=== PATIENT | female | born 1945 | race Caucasian/White ===

== ENCOUNTER 2019-03-10 12:23 | Emergency (ER) | payer OTHER, SELFPAY ==
[2019-03-10 12:31] VITALS: BP 131/78; PULSE 77; RESP 18; TEMP 36.7; O2SAT 98
--- NOTE | 2019-03-10 13:37 | DI.CT.S_ITS ---
PROCEDURE: CT SOFT TISSUE NECK W CON INDICATIONS: tender swollen mass R neck TECHNIQUE: After the administration of intravenous contrast, 3.0 mm axial sections acquired from the sella to the aortic arch. Additional oblique axial 3.0 mm sections acquired through the pharynx. 3 mm thick coronal and sagittal reformats were generated. For radiation dose reduction, the following was used: automated exposure control. COMPARISON: None. FINDINGS: Image quality: Excellent. Lymph nodes: No enlarged lymph nodes seen throughout the neck. However, multiple small right sided lymph nodes are evident within the neck. Vessels: Visualized vasculature appears patent. Minimal atherosclerosis of the left carotid bulb is evident without focal narrowing identified. There may also be subtle atherosclerosis of the right carotid bulb. Mild aortic atherosclerosis is present. There is also atherosclerosis of the origin of the left subclavian artery. A bovine aortic arch is present. Neck spaces: The oropharynx, nasopharynx, and pharynx demonstrate no mucosal lesions. The vocal cords, false vocal cords, pyriform sinuses, epiglottis, vallecula, and tongue base all appear normal. Extramucosal spaces appear unremarkable. Glands: A marker was placed at the site of the patient's area of concern, which is noted to be overlying the right parotid gland. The right parotid gland is enlarged when compared to the left parotid gland. There is heterogeneity and increased vascularity demonstrated to the right parotid gland. There may be a few small intraparotid lymph nodes. No loculated or drainable fluid collections are evident. Subcutaneous edema along the right aspect of the neck is evident without a drainable fluid collection identified. There is no edema or fluid extending into the deep spaces of the neck. The left parotid gland is normal in size. The submandibular glands do not appear to be enlarged. Miscellaneous: Visualized brain and orbits appear normal. There may be areas of intralobular septal thickening within the bilateral lung apices. A left-sided cardiac pacer/defibrillator apparatus is incidentally noted, but not adequately evaluated. Mild prominence of the wall of the upper esophagus appears to be present. Superficial soft tissues appear normal. The included portions of the brain are grossly unremarkable. There may be minimal chronic small vessel ischemic changes involving the deep white matter of the anterior frontal lobes. The thyroid gland is normal in size. No definite thyroid nodules are evident. Bones: No suspicious bony lesions. Visualized sinuses and mastoids appear unremarkable. [id number] degenerative changes of the cervical spine are more prominent involving the lower cervical levels, which are age-appropriate. IMPRESSION: 1. Enlarged right parotid gland with mild surrounding edema within the adjacent tissues and minimal fluid extending along the right aspect of the neck. No definite parotid mass is appreciated. These findings are suspicious for parotiditis. The possibility of a parotid duct obstruction cannot be excluded and is not adequately evaluated by imaging. Clinical correlation is recommended. Followup CT imaging of the neck with contrast and approximately 3 months is recommended to reevaluate the parotid gland 2. Reactive lymph nodes within the neck. 3. Mild prominence of the wall of the upper esophagus is of doubtful significance. Please correlate clinically to exclude esophagitis. Dictated by: Darren Nelson M.D. on 03/10/2019 at 13:43 Approved by: Darren Nelson M.D. on 03/10/2019 at 13:49
[2019-03-10 13:54] LABS: Add Manual Diff / Slide Review NO; Basophils Absolute Auto 100 /uL (0-100); Basophils Percent Auto 0.7 % (0-2); Eosinophils Absolute Auto 300 /uL (0-450); Hematocrit 39.7 % (36-46); Hemoglobin 13.4 g/dL (12.0-16.0); Lymphocytes Absolute Auto 1200 /uL (1100-4500); Lymphocytes Percent Auto 11.9 % (25-40); Mean Corpuscular HGB Conc 33.7 % (30-36); Mean Corpuscular Hemoglobin 31.1 PG (26-34); Mean Corpuscular Volume 92.3 fL (80-100); Monocytes Absolute Auto 1200 /uL (0-900); Monocytes Percent Auto 12.1 % (3-14); Neutrophils Absolute Auto 7500 /uL (1500-7000); Neutrophils Percent Auto 72.3 % (50-75); Platelet Count 213 X10^3/uL (150-400); Red Cell Distribution Width 14.5 % (11.6-14.8); White Blood Cell Count 10.3 X10^3/uL (4.5-11.0)
[2019-03-10] MEDS: SODIUM CHLORIDE 0.9% 1,000 ML 1000 ML IV (13:57)
[2019-03-10 14:08] LABS: Blood Urea Nitrogen 14 mg/dL (7-17); Calcium 9.1 mg/dL (8.4-10.2); Carbon Dioxide 30 mmol/L (22-32); Chloride 104 mmol/L (98-107); Estimated Glomerular Filt Rate > 60.0 mL/min (>60); Glucose 94 mg/dL (80-110); HEMOLYSIS < 15 (0-50); Potassium 4.4 mmol/L (3.4-5.1); Sodium 140 mmol/L (137-145)
--- NOTE | 2019-03-10 15:00 | ED.NECK ---
HPI - Neck Pain/Injury General Chief Complaint: Neck Pain/Injury Stated Complaint: Swelling on Right Side of Face, Sent from [facility] Time Seen by Provider: 03/10/19 13:00 Mode of arrival: Ambulatory Limitations: no limitations History of Present Illness HPI Narrative: 73F nonsmoker with cardiac history presents with gradually worsening right-sided jaw pain and swelling over the past day or 2. She has no trouble breathing and no difficulty swallowing. She denies any fever chills nor nausea or vomiting. She denies any trauma or history of the same. She was seen at the walk-in clinic and sent here for further evaluation. MD complaint: neck pain Onset (ago): day(s) Place: home Radiation: right lateral Severity: moderate Quality: aching Duration: constant Relieving factors: none Exacerbating factors: movement of neck Associated symptoms: none Treatments prior to arrival: none Related Data Home Medications Medication Instructions Recorded Confirmed blue green algae PO 04/10/18 04/10/18 digoxin 125 mcg (0.125 mg) tablet 0.125 mg PO DAILY 04/10/18 04/10/18 furosemide PO 04/10/18 04/10/18 magnesium PO 04/10/18 04/10/18 metoprolol succinate 100 mg 100 mg PO BID each 04/10/18 04/10/18 capsule sprinkle, ext. release 24 hr multivitamin 1 cap PO DAILY 04/10/18 04/10/18 potassium chloride PO 04/10/18 04/10/18 verapamil 360 mg 24 hr 360 mg PO DAILY 04/10/18 04/10/18 capsule,extended release warfarin 5 mg tablet 5 mg PO DAILY 04/10/18 04/10/18 Allergies Allergy/AdvReac Type Severity Reaction Status Date / Time azithromycin AdvReac Rash Verified 04/10/18 11:37 Review of Systems Constitutional Constitutional: Denies chills, Denies fatigue, Denies fever(s), Denies frequent falls, Denies lethargy and Denies weakness Eyes Eyes: Denies change in vision, Denies eye discharge, Denies irritation and Denies loss of vision ENT Ears, Nose, Mouth, and Throat: Denies change in voice, Denies dizziness, Denies neck pain, Denies sore throat and Denies throat swelling Comments: Right-sided facial swelling Cardiovascular Cardiovascular: Denies chest pain, Denies irregular heart rhythm, Denies lightheadedness, Denies palpitations, Denies dyspnea, Denies dyspnea on exertion and Denies orthopnea Respiratory Respiratory: Denies cough, Denies dyspnea, Denies dyspnea on exertion and Denies wheezing Gastrointestinal Gastrointestinal: Denies abdominal pain, Denies change in bowel habits, Denies diarrhea, Denies nausea and Denies vomiting Genitourinary Genitourinary: Denies hematuria, Denies flank pain, Denies urinary incontinence and Denies urinary urgency Musculoskeletal Musculoskeletal: Denies back pain, Denies muscle weakness, Denies neck pain, Denies numbness and Denies tingling Integumentary/Breasts Skin/Breast: Denies pruritus, Denies erythema, Denies rash and Denies wounds Neurologic Neurologic: Denies behavioral changes, Denies confusion, Denies dizziness, Denies frequent falls, Denies loss of vision, Denies numbness, Denies tingling and Denies weakness Psychiatric Psychiatric: Denies anxiety, Denies behavioral changes, Denies confusion, Denies depression, Denies homicidal ideation and Denies suicidal ideation Endocrine Endocrine: Denies fatigue, Denies flushing and Denies palpitations Hematologic/Lymphatic Hematologic/Lymphatic: Denies easy bruising Allergic/Immunologic Allergic/Immunologic: Denies urticaria, Denies throat swelling and Denies wheezing Patient History Social History Smoking Status: Never smoker Smoking Status: Never smoker alcohol intake frequency: 0-2 drinks per day Substance Use Type: does not use Exam Narrative Exam Narrative: GENERAL: [73] year old patient appears stated age. Well-nourished, well-developed patient, in mild distress. HEAD: Atraumatic. Normocephalic. EYES: Pupils equal round and reactive. Extraocular motions intact. No scleral icterus. No injection or drainage. ENT: Right-side facial swelling overlying the parotid gland. There is no fluctuance nor redness or warmth suggesting infectious source. Intraoral examination shows no evidence of dental abscess. She does have difficulty completely opening her jaw due to pain. Nose without bleeding, purulent drainage. Throat without erythema, tonsillar hypertrophy or exudate. Airway patent. NECK: Trachea midline. Non tender CARDIOVASCULAR: Regular rate and rhythm without murmurs, gallops, or rubs. RESPIRATORY: Clear to auscultation. Breath sounds equal bilaterally. No wheezes, rales, or rhonchi. GASTROINTESTINAL: Abdomen soft, non-tender, nondistended. EXTREMITIES: No edema or joint tenderness. BACK: Nontender without deformity or crepitance. No flank tenderness. NEURO: AOx3. SKIN: No rash or erythema of visible areas Initial Vital Signs Initial Vital Signs: Vital Signs Temperature 98.1 F 03/10/19 12:31 Pulse Rate 77 03/10/19 12:31 Respiratory Rate 18 03/10/19 12:31 Blood Pressure 131/78 03/10/19 12:31 Pulse Oximetry 98 03/10/19 12:31 Course Course Course Narrative: Discussion with on-call ENT regarding patient's presentation and imaging. His recommendation is encouragement of sialagogues, warm compresses and close follow-up, with consideration of oral antibiotics if patient is immunocompromised or starts showing signs of infection Orders Ordered: ED Orders 03/10/19 13:37 CT soft tissue neck w con Stat 03/10/19 13:45 Basic Metabolic Panel Stat Complete Blood Count AUTO DIFF Stat Discontinued Medications Sodium Chloride (Normal Saline 0.9%) 1,000 mls @ 1,000 mls/hr IV BOLUS ONE Stop: 03/10/19 14:36 Last Infusion: 03/10/19 15:08 Dose: 0 mls/hr Documented by: Infusion: 03/10/19 14:44 Dose: 1,000 mls/hr Documented by: Infusion: 03/10/19 14:28 Dose: 0 mls/hr Documented by: Admin: 03/10/19 13:57 Dose: 1,000 mls/hr Documented by: DANTE Vital Signs Vital signs: Vital Signs - 8 hr 03/10/19 12:31 03/10/19 15:29 Temperature 98.1 F Pulse Rate 77 100 H Respiratory Rate 18 16 Blood Pressure 131/78 148/108 H Pulse Oximetry 98 97 MDM - Neck Pain/Injury Lab Data Result diagrams: 03/10/19 13:45 03/10/19 13:45 Labs: Lab Results 03/10/19 03/10/19 Range/Units 13:45 13:45 WBC 10.3 (4.5-11.0) X10^3/uL RBC 4.30 (4.0-5.2) X10^6/uL Hgb 13.4 (12.0-16.0) g/dL Hct 39.7 (36-46) % MCV 92.3 (80-100) fL MCH 31.1 (26-34) PG MCHC 33.7 (30-36) % RDW 14.5 (11.6-14.8) % Plt Count 213 (150-400) X10^3/uL Neut % (Auto) 72.3 (50-75) % Lymph % (Auto) 11.9 L (25-40) % [place] % (Auto) 12.1 (3-14) % Eos % (Auto) 3.0 (2-4) % Baso % (Auto) 0.7 (0-2) % Neut # (Auto) 7500 H (5345-0847) /uL Lymph # (Auto) 1200 (0557-6872) /uL [place] # (Auto) 1200 H (0-900) /uL Eos # (Auto) 300 (0-450) /uL Baso # (Auto) 100 (0-100) /uL Sodium 140 (137-145) mmol/L Potassium 4.4 (3.4-5.1) mmol/L Chloride 104 (98-107) mmol/L Carbon Dioxide 30 (22-32) mmol/L BUN 14 (7-17) mg/dL Creatinine 0.70 (0.52-1.04) mg/dL Estimated GFR > 60.0 (>60) mL/min BUN/Creatinine Ratio 20.0 (6-22) Glucose 94 (80-110) mg/dL Calcium 9.1 (8.4-10.2) mg/dL Imaging Data CT Soft Tissue: Radiologist's Impression: [place] [address] CT Scan Report Signed Patient: Kiana Rosales LMR#: [id number] : 5Acct:[id number] Age/Sex: 73 / FDate of Service: 03/10/19 Loc: ED Accession Number: [id number] Procedure: CT soft tissue neck w con Ordering Provider: Clay Thurman D.O. PROCEDURE: CT SOFT TISSUE NECK W CON INDICATIONS: tender swollen mass R neck TECHNIQUE: After the administration of intravenous contrast, 3.0 mm axial sections acquired from the sella to the aortic arch. Additional oblique axial 3.0 mm sections acquired through the pharynx. 3 mm thick coronal and sagittal reformats were generated. For radiation dose reduction, the following was used: automated exposure control. COMPARISON: None. FINDINGS: Image quality: Excellent. Lymph nodes: No enlarged lymph nodes seen throughout the neck. However, multiple small right sided lymph nodes are evident within the neck. Vessels: Visualized vasculature appears patent. Minimal atherosclerosis of the left carotid bulb is evident without focal narrowing identified. There may also be subtle atherosclerosis of the right carotid bulb. Mild aortic atherosclerosis is present. There is also atherosclerosis of the origin of the left subclavian artery. A bovine aortic arch is present. Neck spaces: The oropharynx, nasopharynx, and pharynx demonstrate no mucosal lesions. The vocal cords, false vocal cords, pyriform sinuses, epiglottis, vallecula, and tongue base all appear normal. Extramucosal spaces appear unremarkable. Glands: A marker was placed at the site of the patient's area of concern, which is noted to be overlying the right parotid gland. The right parotid gland is enlarged when compared to the left parotid gland. There is heterogeneity and increased vascularity demonstrated to the right parotid gland. There may be a few small intraparotid lymph nodes. No loculated or drainable fluid collections are evident. Subcutaneous edema along the right aspect of the neck is evident without a drainable fluid collection identified. There is no edema or fluid extending into the deep spaces of the neck. The left parotid gland is normal in size. The submandibular glands do not appear to be enlarged. Miscellaneous: Visualized brain and orbits appear normal. There may be areas of intralobular septal thickening within the bilateral lung apices. A left-sided cardiac pacer/defibrillator apparatus is incidentally noted, but not adequately evaluated. Mild prominence of the wall of the upper esophagus appears to be present. Superficial soft tissues appear normal. The included portions of the brain are grossly unremarkable. There may be minimal chronic small vessel ischemic changes involving the deep white matter of the anterior frontal lobes. The thyroid gland is normal in size. No definite thyroid nodules are evident. Bones: No suspicious bony lesions. Visualized sinuses and mastoids appear unremarkable. Vydr-ix-[id number] degenerative changes of the cervical spine are more prominent involving the lower cervical levels, which are age-appropriate. IMPRESSION: 1. Enlarged right parotid gland with mild surrounding edema within the adjacent tissues and minimal fluid extending along the right aspect of the neck. No definite parotid mass is appreciated. These findings are suspicious for parotiditis. The possibility of a parotid duct obstruction cannot be excluded and is not adequately evaluated by imaging. Clinical correlation is recommended. Followup CT imaging of the neck with contrast and approximately 3 months is recommended to reevaluate the parotid gland 2. Reactive lymph nodes within the neck. 3. Mild prominence of the wall of the upper esophagus is of doubtful significance. Please correlate clinically to exclude esophagitis. Dictated by: Darren Nelson M.D. on 03/10/2019 at 13:43 Approved by: Darren Nelson M.D. on 03/10/2019 at 13:49 Discharge Plan Departure Patient Disposition: Home Clinical Impression: Acute parotitis Discharge Date/Time: 03/10/19 15:29 Instructions: DI for Parotitis-Adult Activity Restrictions/Additional Instructions: *You have been diagnosed with [acute parotitis, not likely to be infectious] *What to do: *Take medications as directed: Also, use of chewing gum or sucking on hard candies can help clear this condition. As can the use of warm compresses. *Follow up with your primary care provider in 2-3 days, call for an appointment. Let them know you were seen in the Emergency Department and that we ask that you be seen in follow up *Return to ER if you should have any new, worsening or concerning symptoms, such as [fever, chills, or if the swelling becomes worse, red, warm, more painful or other bothersome symptoms ] Prescriptions: No Action verapamil 360 mg capsule,ext rel. pellets 24 hr 360 mg PO DAILY RF: 0 warfarin 5 mg tablet 5 mg PO DAILY RF: 0 digoxin [Digox] 125 mcg tablet 0.125 mg PO DAILY RF: 0 multivitamin capsule 1 cap PO DAILY RF: 0 metoprolol succinate 100 mg cap,sprinkle,ER 24hr dose pack 100 mg PO BID RF: 0 blue green algae PO RF: 0 furosemide PO RF: 0 magnesium PO RF: 0 potassium chloride PO RF: 0 Referrals: Rory Jackson MD [Physician] -
[2019-03-10 15:29] VITALS: BP 148/108; PULSE 100; RESP 16; O2SAT 97
== END 2019-03-10 15:29 | disposition home or self-care (01) ==
PROVIDERS: Emergency Provider Emergency Medicine
DX: K11.21 Acute sialoadenitis (principal)
CPT/HCPCS: 36415; 70491; 80048; 85025; 99284; Q9967

== ENCOUNTER → 2023-06-30 14:46 | Outpatient (CLI) | payer OTHER, SELFPAY ==
[2023-06-30 15:19] LABS: Add Manual Diff / Slide Review NO; Basophils Absolute Auto 0 /uL (0-100); Basophils Percent Auto 0.7 % (0-2); Eosinophils Absolute Auto 300 /uL (0-450); Eosinophils Percent Auto 4.9 % (2-4); Hematocrit 40.6 % (36-46); Hemoglobin 13.5 g/dL (12.0-16.0); Lymphocytes Absolute Auto 1700 /uL (1100-4500); Lymphocytes Percent Auto 29.1 % (25-40); Mean Corpuscular HGB Conc 33.3 % (30-36); Mean Corpuscular Hemoglobin 31.6 PG (26-34); Mean Corpuscular Volume 94.8 fL (80-100); Monocytes Absolute Auto 500 /uL (0-900); Monocytes Percent Auto 9.2 % (3-14); Neutrophils Absolute Auto 3300 /uL (1500-7000); Neutrophils Percent Auto 56.1 % (50-75); Platelet Count 194 X10^3/uL (150-400); Red Blood Cell Count 4.29 X10^6/uL (4.0-5.2); Red Cell Distribution Width 14.5 % (11.6-14.8); White Blood Cell Count 5.8 X10^3/uL (4.5-11.0)
[2023-06-30 15:26] LABS: INR 3.4 (0.9-1.3)
[2023-06-30 15:36] LABS: Estimated Glomerular Filt Rate 51 mL/min (>60); HEMOLYSIS < 15 (0-50); Potassium 4.5 mmol/L (3.4-5.1); Sodium 140 mmol/L (137-145)
[2023-06-30 21:29] LABS: Hemoglobin A1C% w Est Avg Glu 6.4 % (4.0-6.0)
[2023-07-06 04:52] LABS: Lipoprotein (a) 15.2 nmol/L (<75.0)
== END ==
PROVIDERS: Referring Provider Internal Medicine Clinical Cardiac Electrophysiology; Visit Provider Internal Medicine Clinical Cardiac Electrophysiology
DX: Z51.81 Encounter for therapeutic drug level monitoring (principal); E74.39 Other disorders of intestinal carbohydrate absorption; E78.5 Hyperlipidemia, unspecified
CPT/HCPCS: 36415; 82565; 83036; 83695; 84132; 84295; 85025; 85610

== ENCOUNTER → 2023-10-17 12:09 | Outpatient (CLI) | payer OTHER, SELFPAY ==
--- NOTE | 2023-10-17 12:12 | DI.RAD.S_ITS ---
PROCEDURE: XR TOE RT MIN 2V INDICATIONS: pain / swelling /erythema x 1 week to 3rd digit TECHNIQUE: 3 views of the 3rd toe(s) acquired. COMPARISON: None. FINDINGS: Bones: No fractures or dislocations. No suspicious bony lesions. Mild interphalangeal periarticular osteophyte formation. Soft tissues: No suspicious soft tissue densities. Mild 3rd digit soft tissue swelling. IMPRESSION: Mild 3rd digit soft tissue swelling and interphalangeal joint degeneration. If pain persists, consider cross-sectional imaging such as CT or MRI. Dictated by: Agustín PACHECO Interpreted: Vicky Khanna MD on 10/18/2023 at 18:41 Transcribed by: ROSALINDA on 10/18/2023 at 18:42 Approved by: Vicky Khanna M.D. on 10/19/2023 at 16:44
[2023-10-17 14:09] LABS: Add Manual Diff / Slide Review NO; Basophils Absolute Auto 0 /uL (0-100); Basophils Percent Auto 0.6 % (0-2); Eosinophils Absolute Auto 300 /uL (0-450); Eosinophils Percent Auto 3.4 % (2-4); Hematocrit 38.7 % (36-46); Hemoglobin 12.9 g/dL (12.0-16.0); Lymphocytes Absolute Auto 1700 /uL (1100-4500); Lymphocytes Percent Auto 21.5 % (25-40); Mean Corpuscular HGB Conc 33.2 % (30-36); Mean Corpuscular Hemoglobin 32.1 PG (26-34); Mean Corpuscular Volume 96.7 fL (80-100); Monocytes Absolute Auto 800 /uL (0-900); Monocytes Percent Auto 10.4 % (3-14); Neutrophils Absolute Auto 5200 /uL (1500-7000); Neutrophils Percent Auto 64.1 % (50-75); Platelet Count 215 X10^3/uL (150-400); Red Cell Distribution Width 14.1 % (11.6-14.8)
[2023-10-17 14:28] LABS: Erythrocyte Sedimentation Rate 6 MM/HR (0-20)
[2023-10-17 14:57] LABS: Uric Acid 8.6 mg/dL (2.5-6.2)
[2023-10-17 16:31] LABS: Alanine Aminotransferase 25 IU/L (<35); Albumin 4.4 g/dL (3.5-5.0); Albumin Globulin Ratio 1.6 (1.0-2.8); Alkaline Phosphatase 45 U/L (38-126); BUN Creatinine Ratio 17.2 (6-22); Blood Urea Nitrogen 21 mg/dL (7-17); Calcium 9.4 mg/dL (8.4-10.2); Carbon Dioxide 19 mmol/L (22-32); Chloride 108 mmol/L (98-107); Estimated Glomerular Filt Rate 45 mL/min (>60); Globulin 2.7 g/dL (1.7-4.1); Glucose 100 mg/dL (80-110); Sodium 139 mmol/L (137-145); Total Protein 7.1 g/dL (6.3-8.2)
[2023-10-17 16:36] LABS: Aspartate Aminotransferase 51 IU/L (14-36); HEMOLYSIS 136 (0-50); Potassium 5.9 mmol/L (3.4-5.1)
== END ==
PROVIDERS: PCP Family Medicine; Referring Provider Physician Assistant; Visit Provider Physician Assistant
DX: L03.90 Cellulitis, unspecified (principal); M10.9 Gout, unspecified
CPT/HCPCS: 36415; 73660; 80053; 84550; 85025; 85651

== ENCOUNTER → 2024-05-15 14:24 | Outpatient (CLI) | payer OTHER, SELFPAY ==
[2024-05-15 15:12] LABS: Influenza A - CEPHEID Flu A POSITIVE (NEGATIVE); Influenza B - CEPHEID Flu B NEGATIVE (NEGATIVE); Respiratory Syncytial Virus Negative (Negative)
[2024-05-15 15:15] LABS: COVID-19 CEPHEID 4-PLEX PCR Negative (Negative)
== END ==
PROVIDERS: PCP Family Medicine; Visit Provider Nurse Practitioner Family
DX: R05.1 Acute cough (principal)
CPT/HCPCS: 0241U

== ENCOUNTER → 2024-05-15 15:25 | Outpatient (CLI) | payer OTHER, SELFPAY ==
--- NOTE | 2024-05-15 15:27 | DI.RAD.S_ITS ---
PROCEDURE: XR CHEST 2V INDICATIONS: r/o PNA TECHNIQUE: 2 views of the chest were acquired. COMPARISON: None. FINDINGS: Surgical changes and devices: Left chest wall pacing device lead is in the region of right ventricle. Lungs and pleura: Mild pulmonary vascular congestion. No focal infiltrate. No pleural effusions or pneumothorax. Mediastinum: Mediastinal contours are normal. Heart size is enlarged. Bones and chest wall: No suspicious bony abnormalities. Soft tissues appear unremarkable. IMPRESSION: Cardiomegaly and mild congestion. No focal infiltrate, pleural effusion or pneumothorax. Dictated by: Marcelo Ortega M.D. on 05/15/2024 at 16:08 Approved by: Marcelo Ortega M.D. on 05/15/2024 at 16:09
== END ==
PROVIDERS: PCP Family Medicine; Referring Provider Nurse Practitioner Family; Visit Provider Nurse Practitioner Family
DX: R05.1 Acute cough (principal); I51.7 Cardiomegaly; R09.89 Other specified symptoms and signs involving the circulatory and respiratory systems
CPT/HCPCS: 0241U; 71046